=== PATIENT | male | born 1990 | race African-American/Black ===

== ENCOUNTER 2017-05-01 02:10 | Emergency (ER) | payer OTHER ==
[~2017-05-01] VITALS: Ht 175.3 cm; Wt 90.8 kg
[~2017-05-01 02:10] MED LIST: [UNRECOGNIZED DRUG - OTHER]
[2017-05-01 02:15] VITALS: BP 137/80; PULSE 64; RESP 16; O2SAT 100
--- NOTE | 2017-05-01 02:54 | PD ---
HPI Chief Complaint: Chest Pain Time Seen by Provider: 02:23 Travel History International Travel<30 days: No Contact w/Intl Traveler<30days: No Traveled to known affect area: No History of Present Illness HPI 26 years old male complains of chest pain. Patient states that he was at rest when the chest pain came on. Patient states that he has tightness feeling substernally. Patient states that he had lightheadedness with the chest pain. Patient denies any pain radiation. Patient denies palpitation nausea diaphoresis. Patient denies any coughing congestion fever chills. Patient states that the chest pain lasted about 20 minutes and resolved completely. Patient denies any chest pain now. Patient states that he has been doing a lot of exercise and does not have any chest pain with exercise. Patient denies any history hypertension, diabetes, hyperlipidemia. Patient is a nonsmoker. Patient was seen in emergency room 2 years ago with chest pain. EKG chest today was normal at that time. Patient states that he has not had any chest pain problems since then. PFSH Past Medical History Medical History: Denies Significant Hx Diminished Hearing: No Immunizations Current: Yes Tetanus Vaccination: Unknown Influenza Vaccination: No Social History Alcohol Use: No Tobacco Use: No Substance Use: No Allergies-Medications (Allergen,Severity, Reaction): Coded Allergies: No Known Allergies (Unverified , 05/01/17) Reported Meds & Prescriptions Reported Meds & Active Scripts Active No Active Prescriptions or Reported Medications Review of Systems General / Constitutional: No: Fever Eyes: No: Visual changes HENT: No: Headaches Cardiovascular: Positive: Chest Pain or Discomfort Respiratory: No: Shortness of Breath Gastrointestinal: No: Abdominal Pain Genitourinary: No: Dysuria Musculoskeletal: No: Pain Skin: No Rash Neurologic: No: Weakness Psychiatric: No: Depression Endocrine: No: Polydipsia Hematologic/Lymphatic: No: Easy Bruising Physical Exam Narrative GENERAL: Well-nourished, well-developed patient. SKIN: Focused skin assessment warm/dry. HEAD: Normocephalic. EYES: No scleral icterus. No injection or drainage. NECK: Supple, trachea midline. No JVD or lymphadenopathy. CARDIOVASCULAR: Regular rate and rhythm without murmurs, gallops, or rubs. RESPIRATORY: Breath sounds equal bilaterally. No accessory muscle use. GASTROINTESTINAL: Abdomen soft, non-tender, nondistended. MUSCULOSKELETAL: No cyanosis, or edema. BACK: Nontender without obvious deformity. No CVA tenderness. Neurologic exam normal. Data Data Last Documented VS Vital Signs Date Time Temp Pulse Resp B/P Pulse Ox O2 Delivery O2 Flow Rate FiO2 05/01/17 02:25 63 14 99 Room Air 05/01/17 02:15 137/80 Orders Chest, Single Ap (05/01/17 02:40) MDM Medical Decision Making Medical Screen Exam Complete: Yes Emergency Medical Condition: Yes Interpretation(s) 2:53 AM. EKG shows sinus rhythm nonspecific ST-T wave changes. T-wave inversion in III and V1. Unchanged from previous EKG. 3:09 AM. Chest x-ray shows no acute consolidation. Differential Diagnosis Differential diagnosis including musculoskeletal, angina, SC, PE, pneumothorax. Narrative Course 26 years old male with chest pain. Diagnosis Primary Impression: Atypical chest pain Patient Instructions: General Instructions Additional Instructions: Aspirin daily. Follow-up with personal physician. Return immediately if increasing chest pain or short of breath. Med/Other Pt SpecificInfo: No Meds Exist/No RX given Scripts No Active Prescriptions or Reported Meds Disposition: 01 DISCHARGE HOME Condition: Stable Dillon Olsen MD May 01, 2017 02:54
[2017-05-01 02:55] VITALS: BP 129/72; PULSE 62; RESP 16; O2SAT 100
--- NOTE | 2017-05-01 03:06 | RADRPT ---
EXAM DATE/TIME: 05/01/2017 02:54 [facility] COMPARISON: CHEST SINGLE AP, March 12, 2015, 20:37. INDICATIONS : Chest pain. MEDICAL HISTORY : None. SURGICAL HISTORY : None. ENCOUNTER: Initial ACUITY: 1 day PAIN SCORE: 4/10 LOCATION: Bilateral chest FINDINGS: Portable AP view of the chest demonstrates a normal-sized cardiac silhouette. No effusion, consolidat ion, or pneumothorax is visualized. The bones and soft tissues demonstrate no acute abnormality. Lung s are underinflated CONCLUSION: Underinflated examination. No acute cardiopulmonary abnormality is identified. Cr Ariza MD on May 01, 2017 at 3:04 Board Certified Radiologist. This report was verified electronically.
--- NOTE | 2017-05-01 20:47 | EKG ---
Date Performed: 05/01/2017 Time Performed: 02:25:25 PTAGE: 26 years EKG: Sinus rhythm NORMAL ECG PREVIOUS TRACING : 03/12/2015 20.43 Compared to prior tracing no significant change DOCTOR: Shawn Villagran Interpretating Date/Time 05/01/2017 20:46:26
== END 2017-05-01 03:20 | disposition home or self-care (01) ==
LOC: PHED 02:10
DX: R07.89 Other chest pain (principal)
CPT/HCPCS: 71010; 93005; 99284